=== PATIENT | male | born 1965 | race Caucasian/White ===

== ENCOUNTER 2016-09-04 23:06 | Emergency (ER) | payer BC ==
[~2016-09-04] VITALS: Ht 175.3 cm; Wt 68.2 kg
[2016-09-04 23:16] VITALS: Ht 175.3 cm; Wt 68.2 kg
[2016-09-05] MEDS ORDERED: LIDOCAINE/MYLANTA 40 ML BTL PO STA (01:37)
[2016-09-05] MEDS ORDERED: LIDOCAINE 2% VISC 15 ML CUP PO ONE (02:00)
[2016-09-05 02:25] LABS: BASOPHILS % 0.7 % (0.0-2.0); EOSINOPHILS % 0.1 % (0.0-7.0); HEMATOCRIT 53.3 % (42.0-52.0); LYMPHOCYTES # 1.5 10^3/ul (0.8-2.9); LYMPHOCYTES % 23.5 % (15.0-51.0); MEAN CORPUSCULAR HEMOGLOBIN 29.1 pg (29.0-33.0); MEAN CORPUSCULAR HGB CONC 33.7 g/dl (32.0-37.0); MEAN CORPUSCULAR VOLUME 86.1 fl (82.0-101.0); MEAN PLATELET VOLUME 8.6 fl (7.4-10.4); MONOCYTE # 0.2 10^3/ul (0.3-0.9); MONOCYTES % 2.5 % (0.0-11.0); NEUTROPHIL # 4.5 10^3/ul (1.6-7.5); NEUTROPHILS % 73.2 % (39.0-77.0); PLATELET COUNT 348 10^3/UL (140-440); RED BLOOD COUNT 6.19 10^6/ul (4.70-6.10); UNCORRECTED WBC 6.2 10^3/ul (4.8-10.8); WHITE BLOOD COUNT 6.2 10^3/ul (4.8-10.8)
[2016-09-05 02:30] LABS: CONDITION 1; LH ANALYZER COMMENTS 1
[2016-09-05 03:47] LABS: ALBUMIN 4.1 g/dl (3.3-4.9); CHLORIDE 99 mmol/L (97-110); SODIUM 144 mmol/L (135-144)
[2016-09-05 03:48] LABS: POTASSIUM 3.6 mmol/L (3.5-5.1)
[2016-09-05 03:49] LABS: CREATININE 0.66 mg/dl (0.61-1.24)
[2016-09-05 03:50] LABS: ALANINE AMINOTRANSFERASE 41 IU/L (13-69); ALBUMIN/GLOBULIN RATIO 0.95; ALKALINE PHOSPHATASE 73 IU/L (42-121); ANION GAP 19 (8-16); ASPARTATE AMINO TRANSFERASE 27 IU/L (15-46); BILIRUBIN,INDIRECT 0.7 mg/dl (0-1.1); BILIRUBIN,TOTAL 0.7 mg/dl (0.2-1.3); BLOOD UREA NITROGEN 18 mg/dl (7-20); CALCIUM 9.2 mg/dl (8.4-10.2); CARBON DIOXIDE 30 mmol/L (21-31); GLUCOSE 140 mg/dl (70-220); TOTAL PROTEIN 8.4 g/dl (6.1-8.1)
[2016-09-05 04:15] LABS: TROPONIN-I < 0.012 ng/ml (0.00-0.12)
[2016-09-05] MEDS ORDERED: NICARDipine HCL 30 MG CAPSULE PO ONE (04:30)
[2016-09-05] MEDS ORDERED: OMEP40CA6 PO (05:05)
[2016-09-05] MEDS ORDERED: LIDO20SO19 MM (05:07)
[2016-09-05] MEDS ORDERED: DIPH1TAB PO (05:09)
[2016-09-05] MEDS ORDERED: AMLO-218 PO (05:09)
[2016-09-05] MEDS ORDERED: HYDR-902 PO (05:09)
--- NOTE | 2016-09-05 05:14 | ERD ---
ER Documentation Chief Complaint Date/Time DATE: 09/05/16 TIME: 05:11 Chief Complaint abd pain,nausea HPI This is a 51-year-old male complains of epigastric burning pain for 2 days. He has had some diarrhea nonbloody no vomiting no fever no chest pain or shortness of breath. The pain does not radiate. Says the pain is worse with eating. No blood in his stool no melena. Dyspnea on exertion orthopnea no neurological complaints no back pain no dysuria or hematuria ROS All systems reviewed and are negative except as per history of present illness. Medications Home Meds Active Scripts Hydrocodone/Acetaminophen ([place] 10-325 Tablet) 1 Each Tablet, 1 EACH PO 4-6 H, #10 TAB Prov:MEER RAMIREZ DO 09/05/16 Diphenoxylate HCl/Atropine (Lomotil 2.5-0.025 mg Tablet) 1 Each Tablet, 1 TAB PO Q6H Y for DIARRHEA, #14 TAB Prov:MERE RAMIREZ DO 09/05/16 Amlodipine Besylate* (Norvasc*) 10 Mg Tablet, 10 MG PO DAILY, #30 TAB Prov:MERE RAMIREZ DO 09/05/16 Lidocaine (Lidocaine Viscous) 100 Ml Soln, 15 ML MM BEFORE MEALS, #120 Prov:MERE RAMIREZ DO 09/05/16 Omeprazole* (Omeprazole*) 40 Mg Capsule.dr, 40 MG PO DAILY, #20 CAP Prov:MERE RAMIREZ DO 09/05/16 Allergies Allergies: Coded Allergies: No Known Allergy (Unverified , 09/15/13) PMhx/Soc History of Surgery: Yes (LT KNEE MENISCAL TAER) Anesthesia Reaction: No Hx Neurological Disorder: No Hx Respiratory Disorders: No Hx Cardiac Disorders: Yes (HTN, high cholesterol) Hx Psychiatric Problems: Yes (depression, anxiety) Hx Miscellaneous Medical Probl: No Hx Alcohol Use: No Hx Substance Use: Yes (meth use 1 month ago) Hx Tobacco Use: No Smoking Status: Former smoker FmHx Family History: No coronary disease Physical Exam Vitals Vital Signs Date Time Temp Pulse Resp B/P Pulse Ox O2 Delivery O2 Flow Rate FiO2 09/05/16 05:00 72 22 158/102 100 Room Air 09/05/16 03:33 70 26 151/103 99 Room Air 09/04/16 23:16 97.6 80 18 130/80 97 Physical Exam Const: Well-developed, well-nourished Head: Atraumatic, normocephalic Eyes: Normal Conjunctiva, PERRLA, EOMI, normal sclera, no nystagmus ENT: Normal External Ears, Nose and Mouth, moist mucus membranes. Neck: Full range of motion. No meningismus, no lymphadenopathy. Resp: Clear to auscultation bilaterally, no wheezing, rhonchi, rales Cardio: Regular rate and rhythm, no murmurs, S1 S2 present Abd: Soft, moderate epigastric tenderness, non distended. Normal bowel sounds, no guarding or rebound, no pulsitile abdominal masses or bruits Skin: No petechiae or rashes, no ecchymosis , no maculopapular rash Back: No midline or flank tenderness Ext: No cyanosis, or edema, FROM x 4, normal inspection, neurovascularly intact x 4 Neur: Awake and alert, STR 5/5 x 4, sensation intact x 4, no focal findings, cerebellum intact Psych: Normal Mood and Affect Result Diagram: 09/05/16 0150 09/05/16 0325 Results 24 hrs Laboratory Tests Test 09/05/16 01:50 09/05/16 03:25 Basophils # 0.010^3/ul Basophils % 0.7% Blood Morphology Comment Eosinophils # 0.010^3/ul Eosinophils % 0.1% Hematocrit 53.3% Hemoglobin 18.0g/dl Lymphocytes # 1.510^3/ul Lymphocytes % 23.5% Mean Corpuscular Hemoglobin 29.1pg Mean Corpuscular Hemoglobin Concent 33.7g/dl Mean Corpuscular Volume 86.1fl Mean Platelet Volume 8.6fl Monocytes # 0.210^3/ul Monocytes % 2.5% Neutrophils # 4.510^3/ul Neutrophils % 73.2% Nucleated Red Blood Cells # 0.010^3/ul Nucleated Red Blood Cells % 0.0/100WBC Platelet Count 57666^3/UL Red Blood Count 6.1910^6/ul Red Cell Distribution Width 15.0% White Blood Count 6.210^3/ul Alanine Aminotransferase (ALT/SGPT) 41IU/L Albumin 4.1g/dl Albumin/Globulin Ratio 0.95 Alkaline Phosphatase 73IU/L Anion Gap 19 Aspartate Amino Transf (AST/SGOT) 27IU/L Blood Urea Nitrogen 18mg/dl Calcium Level 9.2mg/dl Carbon Dioxide Level 30mmol/L Chloride Level 99mmol/L Creatinine 0.66mg/dl Direct Bilirubin 0.00mg/dl Globulin 4.30g/dl Glucose Level 140mg/dl Indirect Bilirubin 0.7mg/dl Lipase 28U/L Potassium Level 3.6mmol/L Sodium Level 144mmol/L Total Bilirubin 0.7mg/dl Total Protein 8.4g/dl Troponin I < 0.012ng/ml Current Medications Medications (Trade) Dose Ordered Sig/Gabriele Route PRN Reason Start Time Stop Time Status Last Admin Dose Admin Miscellaneous Medication (Gi Cocktail (2)) 40 ml ONCE STAT PO 09/05/16 01:37 09/05/16 01:38 DC 09/05/16 01:49 Lidocaine (Xylocaine (Viscous)) 15 ml ONCE ONCE PO 09/05/16 02:00 09/05/16 02:01 DC 09/05/16 01:49 Nicardipine HCl (Cardene) 30 mg ONCE ONCE PO 09/05/16 04:30 09/05/16 04:31 DC 09/05/16 04:35 Procedures/MDM Patient's pain was instantly resolved after getting viscous lidocaine with GI cocktail. He was given Cardene for his elevated blood pressure which helped. Patient's labs are unremarkable. He has dyspepsia discharge home with omeprazole diarrhea control Norvasc and viscous lidocaine before meals Departure Diagnosis: Primary Impression: Gastritis Gastritis type: unspecified gastritis Chronicity: unspecified Gastritis bleeding: without bleeding Qualified Code: K29.70 - Gastritis without bleeding, unspecified chronicity, unspecified gastritis type Condition: Stable Patient Instructions: Gastritis Vs. Ulcer Referrals: NO PRIMARY,CARE PHYSICIAN (PCP) MERE RAMIREZ DO Sep 05, 2016 05:14
[2016-09-05 05:20] VITALS: BP 148/104; PULSE 71; RESP 22; TEMP 97.6
== END 2016-09-05 05:35 | disposition home or self-care (01) ==
LOC: E/R 23:06
DX: K29.70 Gastritis, unspecified, without bleeding (principal); R40.2252 Coma scale, best verbal response, oriented, at arrival to emergency department; I10 Essential (primary) hypertension; R40.2142 Coma scale, eyes open, spontaneous, at arrival to emergency department; R40.2362 Coma scale, best motor response, obeys commands, at arrival to emergency department; Z87.891 Personal history of nicotine dependence
CPT/HCPCS: 36415; 80053; 83690; 84484; 85025; Z7502; Z7610; 99284

== ENCOUNTER 2018-01-17 13:16 | Emergency (ER) | END 2018-01-17 15:01 | disposition home or self-care (01) ==

== ENCOUNTER 2018-06-27 00:23 | Emergency (ER) | END 2018-06-27 01:15 | disposition home or self-care (01) ==

== ENCOUNTER 2018-08-09 04:49 | Emergency (ER) | payer BC, MEDICAID ==
[~2018-08-09] VITALS: Ht 170.2 cm; Wt 79.2 kg
[~2018-08-09 04:49] MED LIST: ACET500C5 PO; AMLO-218 PO; CEPH-443 PO; DIPH1TAB PO; HYDR-3980 PO; LIDO20SO19 MM; NAPR-985 PO; OMEP40CA6 PO; SULF1TAB31 PO
[2018-08-09 04:51] VITALS: Ht 170.2 cm; Wt 79.2 kg
--- NOTE | 2018-08-09 05:27 | ERD ---
ER Documentation Chief Complaint Chief Complaint recheck of abscess of R hand abscess to r ac, r rib pain HPI This is a 53-year-old male who was brought in for recheck of an abscess of his right hand forearm. Patient did not fill his antibiotics from 2 days ago. He says it continues to drain. No fevers or chills. Patient is an IV drug user and has injected heroin as recently as today ROS All systems reviewed and are negative except as per history of present illness. Medications Home Meds Active Scripts Sulfamethoxazole/Trimethoprim* (Bactrim Ds* Tablet) 1 Each Tablet, 1 TAB PO BID, #14 TAB Prov:BRIAN LAURA PA-C 06/27/18 Cephalexin* (Keflex*) 500 Mg Capsule, 500 MG PO TID for 7 Days, CAP Prov:BRIAN LAURA PA-C 06/27/18 Acetaminophen* (Tylophen*) 500 Mg Capsule, 1 CAP PO Q6H PRN for PAIN AND OR ELEVATED TEMP, #20 CAP Prov:BRIAN LAURA PA-C 06/27/18 Acetaminophen* (Tylophen*) 500 Mg Capsule, 1 CAP PO Q6H PRN for PAIN AND OR ELEVATED TEMP, #30 CAP Prov:ALEXIA HERNANDEZ PA-C 01/17/18 Naproxen* (Naprosyn*) 500 Mg Tablet, 500 MG PO BID PRN for PAIN AND/OR INFLAMMATION, #30 TAB Prov:ALEXIA HERNANDEZ PA-C 01/17/18 Hydrocodone/Acetaminophen ([place] 10-325 Tablet) 1 Each Tablet, 1 EACH PO 4-6 H, #10 TAB Prov:MERE RAMIREZ DO 09/05/16 Diphenoxylate HCl/Atropine (Lomotil 2.5-0.025 mg Tablet) 1 Each Tablet, 1 TAB PO Q6H PRN for DIARRHEA, #14 TAB Prov:MERE RAMIREZ DO 09/05/16 Amlodipine Besylate* (Norvasc*) 10 Mg Tablet, 10 MG PO DAILY, #30 TAB Prov:MERE RAMIREZ DO 09/05/16 Lidocaine (Lidocaine Viscous) 100 Ml Soln, 15 ML MM BEFORE MEALS, #120 Prov:MERE RAMIREZ DO 09/05/16 Omeprazole* (Omeprazole*) 40 Mg Capsule., 40 MG PO DAILY, #20 CAP Prov:MERE RAMIREZ DO 09/05/16 Allergies Allergies: Coded Allergies: No Known Allergy (Unverified , 01/17/18) PMhx/Soc History of Surgery: No Anesthesia Reaction: No Hx Neurological Disorder: No Hx Respiratory Disorders: No Hx Cardiac Disorders: Yes (HTN, high cholesterol) Hx Psychiatric Problems: Yes (depression, anxiety, substance abuse) Hx Miscellaneous Medical Probl: Yes (LT KNEE MENISCAL TEAR) Hx Alcohol Use: No Hx Substance Use: Yes (heroin ) Hx Tobacco Use: Yes Smoking Status: Current every day smoker Physical Exam Vitals Vital Signs Date Temp Pulse Resp B/P (MAP) Pulse Ox O2 O2 Flow FiO2 Time Delivery Rate 08/09/18 97.7 91 16 173/94 96 04:51 (120) Physical Exam Const: No acute distress Head: Atraumatic Eyes: Normal Conjunctiva ENT: Normal External Ears, Nose and Mouth. Neck: Full range of motion. No meningismus. Resp: Clear to auscultation bilaterally Cardio: Regular rate and rhythm, no murmurs Abd: Soft, non tender, non distended. Normal bowel sounds Skin: Weeping 2 x 2 area with central fluctuance with positive drainage noted and right forearm Back: No midline or flank tenderness Ext: No cyanosis, or edema Neur: Awake and alert Psych: Normal Mood and Affect Procedures/MDM Medical decision makin-year-old male with abscess. Patient has not filled his antibiotics. Abscess continues to drain. Given clindamycin and Bactrim here in the ER. Will be discharged home with prescriptions for the same. Return for worsening symptoms. Departure Diagnosis: Primary Impression: Abscess Additional Impression: MRSA (methicillin resistant staph aureus) culture positive Condition: Stable ROSA SANTIAGO Aug 09, 2018 05:27
[2018-08-09] MEDS ORDERED: CLIN300C10 PO (05:28)
[2018-08-09] MEDS ORDERED: SULF1TAB31 PO (05:28)
[2018-08-09] MEDS ORDERED: TRIMETHOPRIM/SULFAMETHOX (DS) TAB PO ONE (05:30)
[2018-08-09] MEDS ORDERED: CLINDAMYCIN 900 MG INJ IM ONE (05:30)
[2018-08-09 06:21] VITALS: BP 170/94; PULSE 91; RESP 16
== END 2018-08-09 06:22 | disposition home or self-care (01) ==
LOC: E/R 04:49
DX: L02.511 Cutaneous abscess of right hand (principal); R40.2142 Coma scale, eyes open, spontaneous, at arrival to emergency department; R40.2352 Coma scale, best motor response, localizes pain, at arrival to emergency department; R40.2252 Coma scale, best verbal response, oriented, at arrival to emergency department; B95.62 Methicillin resistant Staphylococcus aureus infection as the cause of diseases classified elsewhere; I10 Essential (primary) hypertension; F17.210 Nicotine dependence, cigarettes, uncomplicated
CPT/HCPCS: 96372; S0077; Z7502; Z7610